=== PATIENT | male | born 1955 | race African-American/Black ===

== ENCOUNTER 2022-05-16 09:15 | Inpatient (IN) | payer OTHER, MEDICAID ==
[~2022-05-16] VITALS: Ht 175.3 cm; Wt 120.0 kg
[2022-05-16 10:12] LABS: Basophils # (auto) 0 10 ^3/uL (0-0.2); Basophils % (auto) 1.3 % (0.0-2.0); Eosinophils # (auto) 0.1 10 ^3/uL (0-0.8); Eosinophils % (auto) 3.5 % (0.0-7.0); Hemoglobin 15.8 g/dL (13.5-17.5); Lymphocytes # (auto) 0.8 10 ^3/uL (0.4-5.4); Lymphocytes % (auto) 23.8 % (10.0-50.0); Mean Corpuscular Hemoglobin 32.5 pg (28.0-32.0); Mean Corpuscular Hgb Conc. 33.6 g/dL (32.0-36.0); Mean Corpuscular Volume 96.7 fL (80.0-100.0); Monocytes # (auto) 0.5 10 ^3/uL (0-1.3); Monocytes % (auto) 16.5 % (0.0-12.0); Neutrophils # (auto) 1.8 10 ^3/uL (1.6-8.6); Neutrophils % (auto) 54.9 % (37.0-80.0); Red Blood Cells 4.86 10^6/uL (4.5-5.90); Red Cell Distribution Width 14.8 % (11.8-14.3); White Blood Cell 3.2 10^3/uL (4.4-10.8)
[2022-05-16 10:35] LABS: Albumin 3.3 g/dL (3.4-5.0); Calcium 8.1 mg/dL (8.5-10.1); Potassium 3.4 mmol/L (3.5-5.1)
[2022-05-16 10:38] LABS: Bilirubin, Total 0.4 mg/dL (0.2-1.0); Total Protein 7.8 g/dL (6.4-8.2)
[2022-05-16] MEDS ORDERED: FUROSEMIDE 40 MG/4 ML VIAL IV ONE (11:00)
[2022-05-16] MEDS ORDERED: POTASSIUM EFFERVESENT TAB 25 MEQ PO ONE (11:00)
[2022-05-16 11:39] LABS: Urine WBC None Seen /hpf (0 - 3)
[2022-05-16 11:48] LABS: Urine Bacteria NONE SEEN /hpf (None Seen); Urine Blood Negative /uL (Negative); Urine Specific Gravity 1.007 (1.001-1.035)
[2022-05-16] MEDS ORDERED: MORPHINE SULFATE INJ 2 MG/ml SYRG IV PRN (13:30)
[2022-05-16] MEDS ORDERED: NITROGLYCERIN 0.4 MG SL TAB SL PRN (13:30)
[2022-05-16] MEDS ORDERED: ALBUTEROL SULF 2.5 MG/0.5ML(0.5%) NEB SOLN NEB PRN (14:00)
[2022-05-16 14:17] LABS: Amphetamine Screen, Urine NEGATIVE (NEGATIVE); Barbiturate Scree,Urine NEGATIVE (NEGATIVE); Benzodiazephine Screen, Urine NEGATIVE (NEGATIVE); Cannabinoid Screen, Urine NEGATIVE (NEGATIVE); Cocaine Screen, Urine NEGATIVE (NEGATIVE); Opiate Scree,Urine NEGATIVE (NEGATIVE); Phencyclidine Screen, Urine NEGATIVE (NEGATIVE)
[2022-05-16] MEDS ORDERED: IOHEXOL 350 MG/ML 100ML IJ ONE (15:23)
[2022-05-16] MEDS ORDERED: FURO40TA4 PO (15:34)
[2022-05-16] MEDS ORDERED: ALBU108A5 PO (15:34)
[2022-05-16] MEDS ORDERED: BENZ100C97 PO (15:34)
[2022-05-16] MEDS ORDERED: CARV12.544 PO (15:34)
[2022-05-16 15:36] VITALS: BP 116/79
[2022-05-16 16:33] VITALS: BP 118/78
[2022-05-16 22:00] VITALS: BP 131/77
[2022-05-16] MEDS: HEPARIN SODIUM (PORCINE) 5000 UNITS/ML 1ML VIAL SC SCH (22:22)
[2022-05-16 22:44] VITALS: BP 131/77
[2022-05-17 05:00] VITALS: BP 135/80
[2022-05-17 05:54] LABS: Basophils # (auto) 0 10 ^3/uL (0-0.2); Basophils % (auto) 0.7 % (0.0-2.0); Eosinophils # (auto) 0.1 10 ^3/uL (0-0.8); Eosinophils % (auto) 1.5 % (0.0-7.0); Hematocrit 44.4 % (41.0-53.0); Hemoglobin 15.7 g/dL (13.5-17.5); Lymphocytes # (auto) 0.5 10 ^3/uL (0.4-5.4); Lymphocytes % (auto) 15.3 % (10.0-50.0); Mean Corpuscular Hgb Conc. 35.3 g/dL (32.0-36.0); Mean Corpuscular Volume 96.4 fL (80.0-100.0); Monocytes # (auto) 0.5 10 ^3/uL (0-1.3); Monocytes % (auto) 16.4 % (0.0-12.0); Neutrophils # (auto) 2.2 10 ^3/uL (1.6-8.6); Neutrophils % (auto) 66.1 % (37.0-80.0); Nucleated Red Blood Cells % 0.2 %; Red Blood Cells 4.61 10^6/uL (4.5-5.90); White Blood Cell 3.3 10^3/uL (4.4-10.8)
[2022-05-17 06:15] LABS: Albumin 3.3 g/dL (3.4-5.0); Calcium 8.7 mg/dL (8.5-10.1); Potassium 3.3 mmol/L (3.5-5.1)
[2022-05-17 06:19] LABS: BUN/Creatinine Ratio 22.1; Bilirubin, Total 0.7 mg/dL (0.2-1.0); Total Protein 7.4 g/dL (6.4-8.2)
[2022-05-17 09:00] VITALS: BP 140/84
[2022-05-17] MEDS: FUROSEMIDE 100 MG/10ML VIAL IV SCH (09:55)
[2022-05-17] MEDS: POTASSIUM CHL 10 Meq TABLET PO SCH (09:55)
[2022-05-17] MEDS: HEPARIN SODIUM (PORCINE) 5000 UNITS/ML 1ML VIAL SC SCH ×2 (09:56→21:51)
[2022-05-17] MEDS ORDERED: ENOXAPARIN SOD 40 MG/0.4 ML SYRINGE SC SCH (10:00)
[2022-05-17 13:00] VITALS: BP 145/86
[2022-05-17 17:00] VITALS: BP 126/78
[2022-05-17 22:00] VITALS: BP 139/79
[2022-05-18 05:00] VITALS: BP 124/73
[2022-05-18 09:00] VITALS: BP 134/79
[2022-05-18] MEDS: POTASSIUM CHL 10 Meq TABLET PO SCH (09:39)
[2022-05-18] MEDS: FUROSEMIDE 100 MG/10ML VIAL IV SCH (09:43)
[2022-05-18] MEDS: HEPARIN SODIUM (PORCINE) 5000 UNITS/ML 1ML VIAL SC SCH (09:48)
[2022-05-18 13:00] VITALS: BP 120/74
[2022-05-18] MEDS ORDERED: POTASSIUM CHL 20 Meq TABLET PO ONE (13:00)
[2022-05-18] MEDS ORDERED: MULTIPLE VITAMINS W/ MINERALS TAB PO ONE (13:00)
[2022-05-18] MEDS ORDERED: THIAMINE 100mg/ml INJ (200mg/2ml VIAL) IV ONE (13:00)
[2022-05-18] MEDS ORDERED: LISINOPRIL 10 MG TAB PO ONE (13:00)
[2022-05-18 17:00] VITALS: BP 135/90
[2022-05-18] MEDS: CARVEDILOL 3.125 MG TAB PO SCH ×2 (21:47→22:00)
[2022-05-18 22:00] VITALS: BP 135/78
[2022-05-19 05:00] VITALS: BP 108/62
[2022-05-19 05:18] LABS: Basophils # (auto) 0 10 ^3/uL (0-0.2); Basophils % (auto) 1.1 % (0.0-2.0); Eosinophils # (auto) 0.1 10 ^3/uL (0-0.8); Eosinophils % (auto) 4.1 % (0.0-7.0); Hematocrit 46.1 % (41.0-53.0); Hemoglobin 15.9 g/dL (13.5-17.5); Lymphocytes # (auto) 0.4 10 ^3/uL (0.4-5.4); Lymphocytes % (auto) 14.2 % (10.0-50.0); Mean Corpuscular Hemoglobin 33.3 pg (28.0-32.0); Mean Corpuscular Hgb Conc. 34.4 g/dL (32.0-36.0); Mean Corpuscular Volume 96.6 fL (80.0-100.0); Monocytes # (auto) 0.5 10 ^3/uL (0-1.3); Monocytes % (auto) 16.1 % (0.0-12.0); Neutrophils # (auto) 1.8 10 ^3/uL (1.6-8.6); Neutrophils % (auto) 64.5 % (37.0-80.0); Nucleated Red Blood Cells % 0.2 %; Red Blood Cells 4.78 10^6/uL (4.5-5.90); Red Cell Distribution Width 15.2 % (11.8-14.3); White Blood Cell 2.8 10^3/uL (4.4-10.8)
[2022-05-19 05:34] LABS: INR 1.01 (0.9-1.15); Partial Thromboplastin Time 28.2 sec (24.6-33.4)
[2022-05-19 05:39] LABS: Calcium 8.8 mg/dL (8.5-10.1); Potassium 3.2 mmol/L (3.5-5.1)
[2022-05-19 05:42] LABS: BUN/Creatinine Ratio 24.4
[2022-05-19 09:20] VITALS: BP 125/84
[2022-05-19] MEDS: FUROSEMIDE 100 MG/10ML VIAL IV SCH (09:23)
[2022-05-19] MEDS: MULTIPLE VITAMINS W/ MINERALS TAB PO SCH (09:24)
[2022-05-19] MEDS: POTASSIUM CHL 10 Meq TABLET PO SCH (09:24)
[2022-05-19] MEDS: LISINOPRIL 10 MG TAB PO SCH (09:25)
[2022-05-19] MEDS: CARVEDILOL 3.125 MG TAB PO SCH (09:26)
[2022-05-19] MEDS ORDERED: THIAMINE 100mg/ml INJ (200mg/2ml VIAL) IV SCH (10:00)
[2022-05-19 12:47] VITALS: BP 117/72
[2022-05-19] MEDS ORDERED: ALPR0.254 PO (13:34)
[2022-05-19 16:32] VITALS: BP 134/74
[2022-05-19 22:00] VITALS: BP 98/63
[2022-05-20 05:00] VITALS: BP 99/57
[2022-05-20 09:00] VITALS: BP 98/73
[2022-05-20] MEDS: LISINOPRIL 10 MG TAB PO SCH (10:00)
[2022-05-20] MEDS: CARVEDILOL 3.125 MG TAB PO SCH (10:00)
[2022-05-20] MEDS ORDERED: THIAMINE HCL 100 MG TAB PO SCH (10:00)
[2022-05-20] MEDS: FUROSEMIDE 100 MG/10ML VIAL IV SCH ×2 (10:03→10:05)
[2022-05-20] MEDS: POTASSIUM CHL 10 Meq TABLET PO SCH (10:04)
[2022-05-20] MEDS: MULTIPLE VITAMINS W/ MINERALS TAB PO SCH (10:04)
[2022-05-20] MEDS ORDERED: CAR3125T PO (11:42)
[2022-05-20] MEDS ORDERED: LISI-716 PO (11:42)
[2022-05-20] MEDS ORDERED: POTA-167 PO (11:42)
[2022-05-20] MEDS ORDERED: FURO1TAB31 PO (11:42)
[2022-05-20 13:00] VITALS: BP 128/89
[2022-05-20 16:35] VITALS: BP 122/73
== END 2022-05-20 17:45 | disposition home or self-care (01) | DRG 189 ==
LOC: ER 09:15 → TELE 13:21 → TELE-WESTW 14:23
PROVIDERS: ADMIT Registered Nurse; ATTEND Internal Medicine
DX: J96.20 Acute and chronic respiratory failure, unspecified whether with hypoxia or hypercapnia (principal); I50.23 Acute on chronic systolic (congestive) heart failure; J98.11 Atelectasis; E87.6 Hypokalemia; D69.6 Thrombocytopenia, unspecified; N18.2 Chronic kidney disease, stage 2 (mild); R59.0 Localized enlarged lymph nodes; E66.01 Morbid (severe) obesity due to excess calories; Z20.822 Contact with and (suspected) exposure to COVID-19; F10.10 Alcohol abuse, uncomplicated; Z79.82 Long term (current) use of aspirin; Z79.899 Other long term (current) drug therapy; Z68.39 Body mass index [BMI] 39.0-39.9, adult
CPT/HCPCS: 36415; 71045; 71260; 80048; 80053; 80061; 80307; 80320; 81001; 83880; 84484; 85025; 85049; 85610; 85730; 93306; 96374; 99291; G0378

== ENCOUNTER 2022-06-04 14:42 | Emergency (ER) | payer OTHER, MEDICAID ==
[~2022-06-04] VITALS: Ht 175.3 cm; Wt 128.0 kg
[~2022-06-04 14:42] MED LIST: ALPR0.254 PO; CAR3125T PO; CARV12.544 PO; FURO1TAB31 PO; FURO40TA4 PO; LISI-716 PO; POTA-167 PO
[2022-06-04] MEDS ORDERED: methylPREDNISolone SOD SUCC 125 MG/2 ML VL IM ONE (16:00)
[2022-06-04] MEDS ORDERED: cefTRIAXone W LIDOCAINE 1 GM IM IM ONE (16:00)
[2022-06-04] MEDS ORDERED: cefTRIAXone SOD 1,000 MG VL ONE (20:37)
[2022-06-04] MEDS ORDERED: AMOX-277 PO (21:34)
[2022-06-04] MEDS ORDERED: PRED20TA2 PO (21:34)
[2022-06-04 21:54] VITALS: BP 139/85
== END 2022-06-04 22:03 | disposition home or self-care (01) ==
LOC: ER 14:42
DX: K04.7 Periapical abscess without sinus (principal); I50.9 Heart failure, unspecified; Z79.899 Other long term (current) drug therapy
CPT/HCPCS: 96372; 99284; J0696; J2930

== ENCOUNTER 2023-03-03 18:42 | Emergency (ER) | payer OTHER, MEDICAID ==
[~2023-03-03] VITALS: Ht 175.3 cm; Wt 113.6 kg
[~2023-03-03 18:42] MED LIST changes: +AMOX-277 PO; +PRED20TA2 PO
[2023-03-03] MEDS ORDERED: DexAMETHasone SOD PHOS 10MG/1ML VIAL INJ IM ONE (22:00)
[2023-03-03] MEDS ORDERED: diphenhdrAMINE HCL 50 MG/1 ML VL IM ONE (22:00)
[2023-03-03] MEDS ORDERED: FAMOTIDINE 20 MG TAB PO ONE (22:15)
[2023-03-03] MEDS ORDERED: methylPREDNISolone SOD SUCC 125 MG/2 ML VL IM ONE (22:15)
[2023-03-03 22:49] VITALS: BP 144/86
[2023-03-04] MEDS ORDERED: DIPH25CA66 PO (02:54)
[2023-03-04] MEDS ORDERED: PRED20TA2 PO (02:54)
== END 2023-03-04 04:18 | disposition left against medical advice (07) ==
LOC: ER 18:42
DX: T78.3XXA Angioneurotic edema, initial encounter (principal); R22.0 Localized swelling, mass and lump, head; Z88.1 Allergy status to other antibiotic agents; Z88.6 Allergy status to analgesic agent
CPT/HCPCS: 96372; 99284; J1200; J2930; J1100

== ENCOUNTER → 2023-04-08 | Outpatient (CLI) | payer OTHER ==
[~2023-04-08] MED LIST changes: -AMOX-277 PO; +AMOX875T4 PO; +DIPH25CA66 PO; -LISI-716 PO; +LISI10TA34 PO; -POTA-167 PO; +POTA-211 PO
== END | disposition home or self-care (01) ==
LOC: Rad HDHVI 14:34
PROVIDERS: ATTEND Internal Medicine Cardiovascular Disease
DX: I34.0 Nonrheumatic mitral (valve) insufficiency (principal); I10 Essential (primary) hypertension
CPT/HCPCS: 93306

== ENCOUNTER → 2023-04-26 | Outpatient (CLI) | payer OTHER ==
[~2023-04-26] VITALS: Ht 180.3 cm; Wt 111.1 kg
== END | disposition home or self-care (01) ==
LOC: Rad HDHVI 09:48
PROVIDERS: ATTEND Internal Medicine Cardiovascular Disease
DX: I11.0 Hypertensive heart disease with heart failure (principal); I50.43 Acute on chronic combined systolic (congestive) and diastolic (congestive) heart failure; E78.5 Hyperlipidemia, unspecified; E11.9 Type 2 diabetes mellitus without complications; R06.02 Shortness of breath; R07.89 Other chest pain; R42 Dizziness and giddiness
CPT/HCPCS: 93017

== ENCOUNTER → 2023-07-26 | Outpatient (CLI) | payer MEDICAID, MEDICARE ==
[~2023-07-26] VITALS: Ht 175.3 cm; Wt 130.2 kg
[~2023-07-26] MED LIST changes: +AMLO1TAB22 PO
[2023-07-26 11:12] LABS: Basophils # (auto) 0 10 ^3/uL (0-0.2); Eosinophils # (auto) 0.2 10 ^3/uL (0-0.8); Hematocrit 50.4 % (41.0-53.0); Hemoglobin 17.8 g/dL (13.5-17.5); Mean Corpuscular Hemoglobin 32.1 pg (28.0-32.0); Monocytes # (auto) 0.6 10 ^3/uL (0-1.3); White Blood Cell 3.3 10^3/uL (4.4-10.8)
[2023-07-26 11:13] LABS: Basophils % (auto) 1.3 % (0.0-2.0); Lymphocytes # (auto) 0.5 10 ^3/uL (0.4-5.4); Lymphocytes % (auto) 16.6 % (10.0-50.0); Mean Corpuscular Hgb Conc. 35.3 g/dL (32.0-36.0); Monocytes % (auto) 17.3 % (0.0-12.0); Neutrophils % (auto) 59.8 % (37.0-80.0); Nucleated Red Blood Cells % 0.3 %; Red Blood Cells 5.54 10^6/uL (4.5-5.90); Red Cell Distribution Width 14.9 % (11.8-14.3)
[2023-07-26 11:31] LABS: INR 1.01 (0.9-1.15); Partial Thromboplastin Time 28.1 SEC (24.5-34.5); Prothrombin Time 10.6 sec (9.3-11.8)
[2023-07-26 11:46] LABS: Anion Gap 6 (5-15); Carbon Dioxide 28 mmol/L (20-30); Chloride 104 mmol/L (98-107); Potassium 3.8 mmol/L (3.5-5.1); Sodium 138 mmol/L (136-145)
[2023-07-26 11:47] LABS: Calcium 9.9 mg/dL (8.7-10.4)
[2023-07-26 11:52] LABS: BUN/Creatinine Ratio 9.3 (10.0-20.0); Blood Urea Nitrogen 11 mg/dL (9-23); Glucose 94 mg/dL (74-106)
== END | disposition home or self-care (01) ==
LOC: EEVIPCON → LAB 11:00 → EDSTATUS 07-29 11:34
PROVIDERS: ATTEND Internal Medicine Cardiovascular Disease
DX: I25.10 Atherosclerotic heart disease of native coronary artery without angina pectoris (principal)
CPT/HCPCS: 36415; 80048; 85025; 85610; 85730

== ENCOUNTER → 2023-07-26 | Outpatient (CLI) | payer MEDICARE ==
[2023-07-26 10:15] VITALS: BP 134/83; PULSE 95; RESP 18; O2SAT 92
[2023-07-26 10:31] VITALS: BP 131/89; PULSE 95; RESP 18; O2SAT 95
== END | disposition home or self-care (01) ==
LOC: CHF HDHVI 10:00
PROVIDERS: ATTEND Internal Medicine Cardiovascular Disease
DX: Z01.818 Encounter for other preprocedural examination (principal); I11.9 Hypertensive heart disease without heart failure; R06.01 Orthopnea; I25.5 Ischemic cardiomyopathy
CPT/HCPCS: 93005; G0463